=== PATIENT | female | born 1945 | race Caucasian/White ===

== ENCOUNTER 2019-07-11 10:28 | Outpatient (CLI) | payer MEDICARE ==
--- NOTE | 2019-07-11 12:33 | RAD ---
TWO VIEW CHEST: INDICATIONS: Dyspnea. COMPARISON: None. FINDINGS: There is a rounded density of the inferior left chest on the frontal view, not confirmed on the later al view. This may relate to a nipple shadow. The right lung is clear. The cardiac silhouette is sachi l in size. There is vascular calcification. IMPRESSION: Rounded density overlying the left lower chest on the frontal view, which may relate to a nipple shad ow. Recommend followup with nipple markers in place for confirmation. POS: C
== END 2019-07-11 10:29 | disposition home or self-care (01) ==
LOC: RAD 10:28
PROVIDERS: ATTEND Internal Medicine Pulmonary Disease
DX: R06.00 Dyspnea, unspecified (principal); R91.8 Other nonspecific abnormal finding of lung field
CPT/HCPCS: 71046

== ENCOUNTER 2019-09-13 12:16 | Outpatient (CLI) | payer MEDICARE ==
[~2019-09-13 12:16] MED LIST: Iopamidol 370 76% 100 ML VIAL ONE
[2019-09-13 12:47] LABS: Estimated GFR-MDRD - POC Greater than 90
--- NOTE | 2019-09-13 13:34 | CT ---
CT OF THE CHEST WITH IV CONTRAST INDICATION: Abdominal Pain COMPARISON: None FINDINGS: CHEST: Lungs: There are areas of subpleural groundglass opacity involving portions of the lateral right midd le lobe, inferior lingula and bilateral lower lobes which could be related to dependent subsegmental atelectasis from positioning. There is no overt evidence of peripheral bronchiectasis or eduardo interstitial lobular thickening to suggest presence of underlying interstitial lung disease such as IPF. Pleural space: No effusion. Mediastinum: There are coronary artery and thoracic aortic calcifications. No pathologically enlarged lymph nodes are evident. Upper abdomen:No acute abnormality. Osseous structures: No acute osseous abnormality. No destructive osteolytic or osteoblastic lesion i s identified. There is scattered degenerative and osteoarthritic changes. Soft tissues:Normal. IMPRESSION: 1. No definite peripheral bronchiectasis or eduardo peripheral interstitial lobular thickening demonstr ated. There are areas of subpleural groundglass opacity seen in dependent fashion within both lung bases likely related to subsegmental volume loss. If ILD remains a diagnosis of concern, a repeat CT of the chest utilizing high-resolution protocol may be helpful. 2. Coronary artery and thoracic aortic calcifications.
== END 2019-09-13 12:17 | disposition home or self-care (01) ==
LOC: CT 12:16
PROVIDERS: ATTEND Internal Medicine Pulmonary Disease
DX: R06.09 Other forms of dyspnea (principal); R91.8 Other nonspecific abnormal finding of lung field; I25.10 Atherosclerotic heart disease of native coronary artery without angina pectoris; I70.0 Atherosclerosis of aorta
CPT/HCPCS: 71260; 82565